=== PATIENT | female | born 1985 | race Caucasian/White ===

== ENCOUNTER 2020-10-08 10:44 | Emergency (ER) | payer OTHER ==
[~2020-10-08] VITALS: Ht 172.7 cm; Wt 77.1 kg
[2020-10-08 10:47] VITALS: BP 122/71
--- NOTE | 2020-10-08 10:57 | NUR ---
PT SEEN AND EXAMINED BY .
[2020-10-08] MEDS ORDERED: HYDROCODONE/APAP 10/325MG TABLET ONE (11:26)
[2020-10-08] MEDS ORDERED: HYDROCODONE/APAP 10/325MG TABLET PO ONE (11:30)
[2020-10-08] MEDS ORDERED: TRAM50TA2 PO (11:58)
--- NOTE | 2020-10-08 11:59 | NUR ---
CORINNE CLEMENT AT BEDSIDE FOR SUGAR TONG SPLINT ON THE L WRIST.
--- NOTE | 2020-10-08 12:20 | NUR ---
Patient discharged to home in stable condition. Written and verbal after care instructions given. Patient verbalizes understanding of instruction.
== END 2020-10-08 12:21 | disposition home or self-care (01) ==
LOC: ER 11:27
DX: S52.572A Other intraarticular fracture of lower end of left radius, initial encounter for closed fracture (principal); V43.52XA Car driver injured in collision with other type car in traffic accident, initial encounter; Y93.89 Activity, other specified; Y92.413 State road as the place of occurrence of the external cause; Y99.8 Other external cause status
CPT/HCPCS: 73110